=== PATIENT | female | born 1970 ===

== ENCOUNTER 2018-08-25 13:21 | Emergency (ER) | payer OTHER ==
[2018-08-25 13:56] VITALS: RESP 18
--- NOTE | 2018-08-25 16:01 | C.PDOC ---
History Of Present Illness 48 year old female, whose PMHx includes Liposuction, presents to the ED for evaluation of bilateral flank pain associated with hematuria since last night. Patient reports seeing bright red blood with some clots. She also reports increased urinary frequency and dysuria. She describes her pain as sharp, non- radiating and 8/10 in severity. She also reports nausea, dizziness and palpitations. Patient has not taken any medicine for her symptoms and denies history of kidney stones. Patient denies fever, chills, chest pain, shortness of breath, vomiting, diarrhea and abdominal pain. Patient denies tobacco use. 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) History/Exam Limitations: language barrier Onset/Duration Of Symptoms: Hrs Current Symptoms Are (Timing): Still Present Quality Of Discomfort: Sharp, "Pain" Pain Scale Rating Of: 8 Previous Symptoms: Back Pain Additional History Per: Patient Past Medical History Reviewed: Historical Data, Nursing Documentation, Vital Signs Vital Signs: Last Vital Signs Temp 98.9 F 08/25/18 13:51 Pulse 82 08/25/18 13:51 Resp 18 08/25/18 13:51 BP 170/96 H 08/25/18 13:51 Pulse Ox 97 08/25/18 13:51 - Medical History PMH: No Chronic Diseases Surgical History: No Surg Hx Family History: States: Unknown Family Hx - Social History Hx Alcohol Use: No Hx Substance Use: No - Immunization History Hx Tetanus Toxoid Vaccination: No Hx Influenza Vaccination: No Hx Pneumococcal Vaccination: No Review Of Systems Constitutional: Negative for: Fever, Chills Cardiovascular: Positive for: Palpitations. Negative for: Chest Pain Respiratory: Negative for: Shortness of Breath Gastrointestinal: Positive for: Nausea. Negative for: Vomiting, Abdominal Pain, Diarrhea Genitourinary: Positive for: Dysuria, Frequency, Hematuria Musculoskeletal: Positive for: Other (bilateral flank pain ) Neurological: Positive for: Dizziness. Negative for: Weakness, Numbness Physical Exam - Physical Exam Appears: Non-toxic, No Acute Distress Skin: Normal Color, Warm, Dry Head: Atraumatic, Normacephalic Eye(s): bilateral: Normal Inspection Oral Mucosa: Moist Neck: Supple Chest: Symmetrical, No Deformity, No Tenderness Cardiovascular: Rhythm Regular, No Murmur Respiratory: Normal Breath Sounds, No Rales, No Rhonchi, No Wheezing Gastrointestinal/Abdominal: Soft, No Tenderness, No Guarding, No Rebound Back: CVA Tenderness (bilaterally ) Extremity: Normal ROM, Capillary Refill (less than 2 seconds ) Neurological/Psych: Oriented x3, Normal Speech, Normal Cognition ED Course And Treatment O2 Sat by Pulse Oximetry: 97 (on RA) Pulse Ox Interpretation: Normal - CT Scan/US abd/pelvis Other Rad Studies (CT/US): Read By Radiologist, Radiology Report Reviewed CT/US Interpretation: Accession No. : [id number]. Patient Name / ID : SHAD DE LA PAZ / [id number]. Exam Date : 08/25/2018 16:40:22 ( Approved ). Study Comment : Sex / Age : F / 48Y. Creator : Madelyn Cooley. Dictator : Marina Rey MD. Clamshell Engineer : Pharmacy Operations Manager : Marina Rey MD. Approver2 : Report Date : 08/25/2018 17:07:56. My Comment : . PROCEDURE: CT Abdomen and Pelvis without Oral or IV contrast. HISTORY: r/o kidney stone. COMPARISON: None available. TECHNIQUE: Contiguous axial images of the abdomen and pelvis. No oral or IV contrast administered. Coronal and Sagittal reformats generated and reviewed. Radiation dose: Total exam DLP = 797.0 mGy-cm. This CT exam was performed using one or more of the following dose reduction techniques: Automated exposure control, adjustment of the mA and/ or kV according to patient size, and/or use of iterative reconstruction technique. FINDINGS: There is limited evaluation of the solid organs without the administration of IV contrast. LOWER THORAX: No visible consolidation, pleural effusion, or pneumothorax. Bilateral breast prostheses. LIVER: Unremarkable unenhanced appearance. GALLBLADDER AND BILE DUCTS: Unremarkable unenhanced appearance. PANCREAS: Unremarkable unenhanced appearance. SPLEEN: Unremarkable unenhanced appearance. ADRENALS: Unremarkable unenhanced appearance. KIDNEYS AND URETERS: No hydronephrosis or obstructing renal calculus. BLADDER: Thick-walled under distended urinary bladder. REPRODUCTIVE: Uterus is present. APPENDIX: The appendix appears within normal limits of caliber. No secondary signs of acute appendicitis. BOWEL: The stomach is nondistended. Lack of oral contrast limits evaluation for bowel pathology. The bowel loops appear within normal limits of caliber without evidence of intestinal obstruction. PERITONEUM: No significant free fluid. No definite free air. LYMPH NODES: No bulky lymphadenopathy identified. VASCULATURE: No significant atherosclerotic calcifications of the aorta evident. No aortic aneurysm. BONES: No acute osseous abnormality is detected. OTHER FINDINGS: None. IMPRESSION: Thick-walled urinary bladder; recommend correlation with urinalysis as cystitis is suspected. Medical Decision Making Medical Decision Making: Progress: Zofran PO and Motrin PO given Urinalysis and CT A/P ordered and reviewed- noted to have thickened wall of bladder D/W patient results and diagnosis: hemorrhagic cystitis Macrobid and Pyridium now Follow up with PMD in 1-2 days patient verbalized understanding and is in agreement with plan patient is stable for discharge Disposition Counseled Patient/Family Regarding: Studies Performed, Diagnosis, Need For Followup, Rx Given - Disposition Referrals: [facility] [Outside] Disposition: HOME/ ROUTINE Disposition Time: 18:10 Condition: STABLE Additional Instructions: take Macrobid , Motrin, and Pyridium as instructed Follow up in Clinic in 1-2 days Return to the ED if symptoms worsen Prescriptions: Ibuprofen [Motrin] 600 mg PO Q8 PRN #30 tab PRN Reason: Pain, Moderate (4-7) Nitrofurantoin Macrocrystals [Macrobid] 100 mg PO BID #10 cap Phenazopyridine [Pyridium] 200 mg PO TID #6 tab Instructions: Urinary Tract Infection, Adult (DC) Forms: [employer] 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 - Scribe Statement The provider has reviewed the documentation as recorded by the Scribe (Laura Lay) All medical record entries made by the Scribe were at my direction and personally dictated by me. I have reviewed the chart and agree that the record accurately reflects my personal performance of the history, physical exam, medical decision making, and the department course for this patient. I have also personally directed, reviewed, and agree with the discharge instructions and disposition.
[2018-08-25 16:38] LABS: SQUAMOUS EPITHIAL < 1 /hpf (0-5); URINE BILIRUBIN NEGATIVE (NEGATIVE); URINE BLOOD 2+ (NEGATIVE); URINE CLARITY Clear (Clear); URINE COLOR Straw (YELLOW); URINE GLUCOSE (UA) NORMAL (Normal); URINE LEUKOCYTE ESTERASE TRACE Leu/uL (Negative); URINE PROTEIN NEGATIVE (NEGATIVE); URINE UROBILINOGEN NORMAL mg/dL (0.2-1.0)
--- NOTE | 2018-08-25 17:22 | CT ---
PROCEDURE: CT Abdomen and Pelvis without Oral or IV contrast. HISTORY: r/o kidney stone COMPARISON: None available. TECHNIQUE: Contiguous axial images of the abdomen and pelvis. No oral or IV contrast administered. Coronal and Sagittal reformats generated and reviewed. Radiation dose: Total exam DLP = 797.0 mGy-cm. This CT exam was performed using one or more of the following dose reduction techniques: Automated exposure control, adjustment of the mA and/or kV according to patient size, and/or use of iterative reconstruction technique. FINDINGS: There is limited evaluation of the solid organs without the administration of IV contrast. LOWER THORAX: No visible consolidation, pleural effusion, or pneumothorax. Bilateral breast prostheses. LIVER: Unremarkable unenhanced appearance. GALLBLADDER AND BILE DUCTS: Unremarkable unenhanced appearance. PANCREAS: Unremarkable unenhanced appearance. SPLEEN: Unremarkable unenhanced appearance. ADRENALS: Unremarkable unenhanced appearance. KIDNEYS AND URETERS: No hydronephrosis or obstructing renal calculus. BLADDER: Thick-walled under distended urinary bladder. REPRODUCTIVE: Uterus is present. APPENDIX: The appendix appears within normal limits of caliber. No secondary signs of acute appendicitis. BOWEL: The stomach is nondistended. Lack of oral contrast limits evaluation for bowel pathology. The bowel loops appear within normal limits of caliber without evidence of intestinal obstruction. PERITONEUM: No significant free fluid. No definite free air. LYMPH NODES: No bulky lymphadenopathy identified. VASCULATURE: No significant atherosclerotic calcifications of the aorta evident. No aortic aneurysm. BONES: No acute osseous abnormality is detected. OTHER FINDINGS: None. IMPRESSION: Thick-walled urinary bladder; recommend correlation with urinalysis as cystitis is suspected.
[2018-08-25 17:46] VITALS: BP 134/81; PULSE 70; TEMP 98.2
[2018-08-25 18:13] VITALS: O2SAT 97
== END 2018-08-25 18:24 | disposition home or self-care (01) ==
LOC: C.ER 13:21
DX: N30.91 Cystitis, unspecified with hematuria (principal)